=== PATIENT | male | born 1960 | race Caucasian/White ===

== ENCOUNTER 2020-05-01 07:06 | Day surgery (SDC) | payer MEDICAID ==
[2020-05-01] MEDS ORDERED: Propofol 200 MG/20 ML SDV ONE (07:17)
[2020-05-01] MEDS ORDERED: fentaNYL 100 MCG/2 ML SDV ONE (07:17)
[2020-05-01] MEDS ORDERED: Midazolam 1 MG/ML 2 ML SDV ONE (07:17)
[2020-05-01] MEDS ORDERED: Dextrose 5%-Lactated Ringers 1,000 ML IV SCH (08:00)
[2020-05-01 10:48] VITALS: BP 124/85; PULSE 74
--- NOTE | 2020-05-13 09:15 | OR ---
DATE OF PROCEDURE: 05/01/2020 SURGEON: Orestes Souza MD PREOPERATIVE DIAGNOSIS: Indications for screening colonoscopy. POSTOPERATIVE DIAGNOSIS: Screening colonoscopy showing 2 small polyps. PROCEDURE: Flexible colonoscopy, polypectomy x2 by snare technique. ANESTHESIA: IV sedation. INDICATION FOR PROCEDURE: A 60-year-old presenting for a screening colonoscopy. The plan is to proceed with a colonoscopy with biopsies and polypectomy as indicated. Potential risks of the procedure including bleeding and perforation were discussed, and the patient wishes to proceed. DETAILS OF PROCEDURE: The patient was taken to the operating room and placed in the left lateral decubitus position. IV sedation was administered, after which the initial digital rectal exam was performed and was unremarkable. Colonoscope was then passed into the rectum with retroflexion revealing uncomplicated hemorrhoidal columns. Scope was eventually passed to the level of the cecum. The prep was quite good with only small liquid stool present. Two small polyps were identified, 1 in the splenic flexure, 1 in the descending colon. Both of these were excised by means of the cautery snare technique and sent for histologic evaluation. No bleeding was noted from the biopsy sites. Other than that, there were no areas of colitis or diverticular disease. The scope was then withdrawn. The above findings reconfirmed and the procedure concluded. The patient was taken to recovery room in satisfactory condition. At this point, recommendation would be to repeat the colonoscopy in 3 years assuming that at least 1 of the polyp is an adenomatous polyp. Orestes Souza MD /[id number]
== END 2020-05-01 10:59 | disposition home or self-care (01) ==
LOC: JP.SDS 07:06
PROVIDERS: ATTEND Surgery
DX: Z12.11 Encounter for screening for malignant neoplasm of colon (principal); D12.3 Benign neoplasm of transverse colon; I10 Essential (primary) hypertension; E11.9 Type 2 diabetes mellitus without complications; I48.91 Unspecified atrial fibrillation
CPT/HCPCS: 45385; 88305; J2250; J2704; J3010; J7121

== ENCOUNTER 2021-04-17 07:30 | Day surgery (SDC) | payer MEDICAID ==
[2021-04-17] MEDS ORDERED: Sodium Chloride 0.9% 1,000 ML IV SCH (08:00)
[2021-04-17 08:21] LABS: CORONAVIRUS COVID-19 NAA NEGATIVE (NEGATIVE)
[2021-04-17] MEDS ORDERED: Propofol 200 MG/20 ML SDV ONE (08:53)
[2021-04-17 10:25] VITALS: BP 103/78; PULSE 74
--- NOTE | 2021-04-17 11:42 | PROC ---
DATE OF PROCEDURE: SURGEON: Alexys Miguel MD PROCEDURE PROPOSED: Synchronized cardioversion. PROCEDURE PERFORMED: Synchronized cardioversion. INDICATION: The patient with persistent atrial fibrillation. Goal for cardioversion to sinus pattern. CONSENT: Patient was informed of the risks of the procedure, the possibility of discomfort from the procedure, possibility of further cardiac arrhythmia, chest pain, shortness of breath, required further resuscitation efforts, CPR. Benefit to acquire a conversion of atrial fibrillation to sinus rhythm, improved cardiac performance. The patient indicated understanding, gave consent to proceed. Additionally note, Anesthesia Services also got consent from the patient for this procedure. PROCEDURE IN DETAIL: In a time-out fashion, the appropriate patient was noted, appropriate procedure and the team agreed upon the procedure. The patient had IV access obtained and Anesthesia Services was available for anesthetic application. The patient had monitored presentation with additional attachment to the defibrillator. The patient with continuous monitoring, the patient through Anesthesia Service received anesthetic. With a good level of anesthetic acquired to the patient, I had attempted synchronized cardioversion initially at 100 joules, then 200 joules and finally attempted 300 joules. The patient did not cardiovert with this applied synchronized cardioversion. The patient was maintaining atrial fibrillation, no other arrhythmias were noted. Of interest, I did observe that the patient maintained a solid atrial fibrillation pattern without a hint of transformation to a sinus rhythm during this attempt at cardioversion. Historically, the patient was able to be converted previously about 6 years ago to a sinus pattern and maintained that to approximately a point of 6 weeks ago. The patient now in a more persistent state again of atrial fibrillation noted at the completion of this procedure. There was no complication noted in the procedure. The patient awoke from the anesthetic well. The patient had no neurologic compromise, moving all 4 extremities, cranial nerves 2 through 12 intact. His heart remained irregularly regular. Lungs remain clear. The patient was back to baseline status on a general clinical assessed bedside exam. The patient will continue with his recovery process through the postoperative cares as typical for the unit. The patient will follow up with myself in about a week. I am going to consult electrophysiology for their input in regard to the patient's presentation of rhythm. Additional comments from the today revealed some suggested perhaps episodes of bradycardia, maybe in the 40s. 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 She is going to continue this at this time and thus going to follow up in one week and give another report. Consult will be generated to the building specialist at this time for their assessment as well. I spoke with both patient and today. Alexys Miguel MD /[id number] MTDD
--- NOTE | 2021-04-19 17:21 | PCM.EKG ---
#1 Interpretation EKG Date: 04/17/21 Time: 08:22 Rhythm: A-Fib Rate (Beats/Min): 66 [place]: LAD-Left [place] Deviation P-Wave: Variable QRS: Normal ST-T: Normal QT: Normal LA/PQ Interval: n/a Comparison: Change From Previous EKG (Compared to 02/13/2015 he was in sinus rhythm then and is now in atrial fibrillation)
--- NOTE | 2021-04-19 17:22 | PCM.EKG ---
#2 Interpretation EKG Date: 04/17/21 Time: 09:34 Rhythm: A-Fib Rate (Beats/Min): 58 [place]: LAD-Left [place] Deviation (Left anterior fascicular block) P-Wave: Variable QRS: Normal ST-T: Normal QT: Normal MI/PQ Interval: n/a Comparison: No Change (No change compared to EKG earlier in the day)
== END 2021-04-17 11:00 | disposition home or self-care (01) ==
LOC: JP.SDS 07:30
PROVIDERS: ATTEND Internal Medicine
DX: I48.19 Other persistent atrial fibrillation (principal); Z01.812 Encounter for preprocedural laboratory examination; Z20.822 Contact with and (suspected) exposure to COVID-19
CPT/HCPCS: 0241U; 36415; 82565; 82947; 84132; 85610; 93005; J2704; J7030

== ENCOUNTER 2021-07-09 06:32 | Day surgery (SDC) | payer MEDICAID ==
[2021-07-09] MEDS ORDERED: Sodium Tetradecyl Sulfate 1% 20 MG/2 ML SDV ONE (06:54)
[2021-07-09] MEDS ORDERED: Lidocaine 1% with EPINEPHrine 1:100,000 50 ML MDV ONE (06:54)
[2021-07-09] MEDS ORDERED: Sodium Chloride 0.9% 1,000 ML IV SCH (07:00)
[2021-07-09] MEDS ORDERED: Propofol 200 MG/20 ML SDV ONE ×2 (07:08→08:17)
[2021-07-09] MEDS ORDERED: fentaNYL 100 MCG/2 ML SDV ONE (07:09)
[2021-07-09] MEDS ORDERED: Midazolam 1 MG/ML 2 ML SDV ONE (07:09)
[2021-07-09] MEDS ORDERED: Lidocaine 1% w/EPINEPHrine 50 ML, Sodium Bicarbonate 5 MEQ in Sodium Chloride 0.9% 950 ML INJECT ONE (07:45)
[2021-07-09] MEDS: Lidocaine 1% w/EPINEPHrine 50 ML, Sodium Bicarbonate 5 MEQ in Sodium Chloride 0.9% 950 ML INJECT SCH ×2 (08:00→08:10)
[2021-07-09 09:41] VITALS: BP 116/67; PULSE 58
== END 2021-07-09 09:50 | disposition home or self-care (01) ==
LOC: JP.SDS 06:32
PROVIDERS: ATTEND Surgery
DX: I87.2 Venous insufficiency (chronic) (peripheral) (principal); I80.9 Phlebitis and thrombophlebitis of unspecified site; I48.91 Unspecified atrial fibrillation; I10 Essential (primary) hypertension; E11.9 Type 2 diabetes mellitus without complications
CPT/HCPCS: 36471; 36475; J1642; J2250; J2704; J3010; J7030; J3490

== ENCOUNTER 2023-04-23 06:29 | Day surgery (SDC) | payer MEDICARE, BC ==
[2023-04-23] MEDS ORDERED: Bupivacaine 0.5% 50 ML MDV ONE (07:21)
[2023-04-23] MEDS ORDERED: fentaNYL 100 MCG/2 ML SDV ONE ×3 (07:28→08:51)
[2023-04-23] MEDS ORDERED: Propofol 200 MG/20 ML SDV ONE ×3 (07:28→09:41)
[2023-04-23] MEDS ORDERED: Midazolam 1 MG/ML 2 ML SDV ONE ×2 (07:28→08:21)
[2023-04-23] MEDS ORDERED: Nozin Nasal Sanitizer NASBOTH SCH (07:30)
[2023-04-23] MEDS ORDERED: Lactated Ringers 1,000 ML IV SCH (08:00)
[2023-04-23] MEDS ORDERED: Tranexamic Acid 1,000 MG in Sodium Chloride 0.9% 100 ML IV ONE (08:15)
[2023-04-23] MEDS ORDERED: Tranexamic Acid 1,000 MG in Sodium Chloride 0.9% 50 ML IV ONE (09:00)
[2023-04-23] MEDS ORDERED: ceFAZolin 2 GM in Sodium Chloride 0.9% 50 ML IV ONE (09:00)
[2023-04-23] MEDS ORDERED: Lactated Ringers 1,000 ML ONE (09:03)
[2023-04-23] MEDS ORDERED: Morphine 2 MG/ML SYRINGE IVPUSH PRN (10:10)
[2023-04-23] MEDS ORDERED: Magnesium Hydroxide 400 MG/5 ML Susp 30 ML Cup PO PRN (10:10)
[2023-04-23] MEDS ORDERED: Docusate Sodium 100 MG Cap PO PRN (10:10)
[2023-04-23] MEDS ORDERED: Ondansetron 4 MG/2 ML SDV IVPUSH PRN (10:10)
[2023-04-23] MEDS ORDERED: Gabapentin 100 MG Cap PO PRN (10:17)
[2023-04-23] MEDS: Sodium Chloride 0.9% 1,000 ML IV SCH ×2 (11:05→19:08)
[2023-04-23] MEDS: oxyCODONE 5 MG Tab PO PRN ×4 (11:11→23:55)
[2023-04-23] MEDS: Acetaminophen 325 MG Tab PO SCH ×3 (11:26→23:54)
[2023-04-23] MEDS ORDERED: ceFAZolin 2 GM in Sodium Chloride 0.9% 50 ML IV SCH (16:00)
[2023-04-23] MEDS: ceFAZolin 2 GM in Sodium Chloride 0.9% 50 ML IV SCH ×2 (16:23→23:52)
[2023-04-23] MEDS ORDERED: DULAGLUTIDE 0.75 MG/0.5 ML SUBCUT SCH (17:00)
[2023-04-23] MEDS: Nozin Nasal Sanitizer NASBOTH SCH (20:43)
[2023-04-23] MEDS: Carvedilol 12.5 MG Tab PO SCH (20:45)
[2023-04-24] MEDS: Acetaminophen 325 MG Tab PO SCH ×2 (06:13→11:35)
[2023-04-24] MEDS: Nozin Nasal Sanitizer NASBOTH SCH (08:18)
[2023-04-24] MEDS: ceFAZolin 2 GM in Sodium Chloride 0.9% 50 ML IV SCH (08:19)
[2023-04-24] MEDS: Carvedilol 12.5 MG Tab PO SCH (08:21)
[2023-04-24] MEDS: oxyCODONE 5 MG Tab PO PRN ×3 (08:23→14:31)
[2023-04-24] MEDS ORDERED: Diltiazem 120 MG Cap.CD PO SCH (09:00)
[2023-04-24] MEDS ORDERED: Fish Oil/Omega-3 Fatty Acids 1 Gm Cap PO SCH (09:00)
[2023-04-24] MEDS ORDERED: Rosuvastatin 5 MG Tab PO SCH (09:00)
[2023-04-24] MEDS ORDERED: Calcium Carbonate/Vitamin D3 1500 MG-400 Units Tab PO SCH (09:00)
[2023-04-24] MEDS ORDERED: Allopurinol 100 MG Tab PO SCH (09:00)
[2023-04-24] MEDS ORDERED: EPLERENONE 50 MG PO SCH (09:00)
[2023-04-24] MEDS ORDERED: Ascorbic Acid 500 MG Tab PO SCH (09:00)
[2023-04-24] MEDS ORDERED: Multivitamins with Iron/Calcium/Folic Acid/Minerals Tab PO SCH (09:00)
[2023-04-24] MEDS ORDERED: Apixaban 5 MG Tab PO SCH (09:00)
[2023-04-24] MEDS ORDERED: Indapamide 2.5 MG Tab PO SCH (09:00)
[2023-04-24] MEDS: Sodium Chloride 0.9% 1,000 ML IV SCH (09:07)
[2023-04-24 11:28] VITALS: BP 124/70; PULSE 82
== END 2023-04-24 15:41 | disposition home or self-care (01) ==
LOC: JP.SDS 06:29 → JP.ICU 10:10 → JP.SDS 04-24 15:41
PROVIDERS: ATTEND Specialist
DX: M17.11 Unilateral primary osteoarthritis, right knee (principal); I10 Essential (primary) hypertension; I48.91 Unspecified atrial fibrillation; E11.40 Type 2 diabetes mellitus with diabetic neuropathy, unspecified; E78.5 Hyperlipidemia, unspecified; Z98.890 Other specified postprocedural states; Z79.899 Other long term (current) drug therapy; Z79.01 Long term (current) use of anticoagulants
CPT/HCPCS: 27447; 73560; 97110; 97116; 97161; A9270; C1713; C1776; J0690; J2250; J2704; J3010; J3490; J7030; J7120

== ENCOUNTER 2023-09-23 06:27 | Day surgery (SDC) | payer MEDICARE, BC ==
[2023-09-23] MEDS ORDERED: fentaNYL 50 MCG/ML SDV ONE (07:13)
[2023-09-23] MEDS ORDERED: Midazolam 1 MG/ML 2 ML SDV ONE (07:13)
[2023-09-23] MEDS ORDERED: Propofol 200 MG/20 ML SDV ONE ×2 (07:13→07:46)
[2023-09-23] MEDS: Lactated Ringers 1,000 ML IV SCH (07:16)
[2023-09-23 09:09] VITALS: BP 127/69; PULSE 59
[2023-09-25] MEDS ORDERED: Dextrose 5%-Lactated Ringers 1,000 ML IV SCH (06:40)
== END 2023-09-23 09:11 | disposition home or self-care (01) ==
LOC: JP.SDS 06:27
PROVIDERS: ATTEND Family Medicine
DX: Z12.11 Encounter for screening for malignant neoplasm of colon (principal); D12.2 Benign neoplasm of ascending colon; E11.9 Type 2 diabetes mellitus without complications; I10 Essential (primary) hypertension; E78.5 Hyperlipidemia, unspecified; I48.0 Paroxysmal atrial fibrillation; Z79.899 Other long term (current) drug therapy; Z79.01 Long term (current) use of anticoagulants; Z86.010 Personal history of colon polyps; Z80.0 Family history of malignant neoplasm of digestive organs
CPT/HCPCS: 00811; 45380; J2250; J2704; J3010; J7120; 88305